=== PATIENT | male | born 1970 | race Caucasian/White ===

== ENCOUNTER 2018-03-13 21:21 | Emergency (ER) | payer OTHER | END 2018-03-14 00:24 | disposition home or self-care (01) | LOC: FTE 03-14 00:24 | DX: T15.11XA Foreign body in conjunctival sac, right eye, initial encounter (principal); X58.XXXA Exposure to other specified factors, initial encounter; Y92.9 Unspecified place or not applicable | CPT/HCPCS: 65205; 99283-25 ==